=== PATIENT | male | born 1965 | race Caucasian/White ===

== ENCOUNTER → 2017-04-20 | Emergency (ER) | payer OTHER ==
[~2017-04-20] VITALS: Ht 175.3 cm; Wt 87.1 kg
[~2017-04-20] MED LIST: HUMALOG100 UNIT/1; LEVEMIR100 UNIT/1
== END | disposition home or self-care (01) ==
LOC: ER 15:24
DX: S01.81XA Laceration without foreign body of other part of head, initial encounter (principal); W45.8XXA Other foreign body or object entering through skin, initial encounter; Y93.89 Activity, other specified; Y92.89 Other specified places as the place of occurrence of the external cause; Y99.8 Other external cause status; I10 Essential (primary) hypertension; E10.649 Type 1 diabetes mellitus with hypoglycemia without coma

== ENCOUNTER 2017-11-25 18:13 | Emergency (ER) | payer OTHER ==
[~2017-11-25] VITALS: Ht 172.7 cm; Wt 89.8 kg
== END 2017-11-25 23:10 | disposition home or self-care (01) ==
LOC: ER 18:13
DX: R07.89 Other chest pain (principal)

== ENCOUNTER 2019-03-25 10:35 | Outpatient (CLI) | payer OTHER | END 2019-03-25 10:47 | disposition home or self-care (01) | LOC: LAB 10:35 | DX: E11.21 Type 2 diabetes mellitus with diabetic nephropathy (principal); D64.89 Other specified anemias; D68.8 Other specified coagulation defects; E11.65 Type 2 diabetes mellitus with hyperglycemia; N40.1 Benign prostatic hyperplasia with lower urinary tract symptoms ==